=== PATIENT | male | born 1940 | race Caucasian/White ===

== ENCOUNTER 2016-10-22 16:21 | Inpatient (IN) | payer MEDICARE ==
[2016-10-22] MEDS ORDERED: LABETALOL 5 MG/ML VIAL MDV IVP STA (17:02)
[2016-10-22] MEDS ORDERED: SODIUM CHLORIDE 0.9% 1,000 ML IV ONE (17:02)
[2016-10-22] MEDS ORDERED: ASPIRIN 325 MG TAB PO STA (17:02)
[2016-10-22 17:25] LABS: Basophils # (A) 0.1 k/uL (0-0.2); Basophils % (A) 1 %; CH 30.9; CHCM 34.4; Eosinophils # (A) 0.1 k/uL (0-0.7); Eosinophils % (A) 0 %; HCT 47.7 % (39.0-53.0); HDW 2.49; HGB 15.9 gm/dL (13.0-17.5); Luc # (Auto) 0.15; Luc % (Auto) 1; Lymphocytes # (A) 1.3 k/uL (1.0-4.8); Lymphocytes % (A) 11 %; MCH 30.1 pg (25.0-35.0); MCHC 33.4 g/dL (31.0-37.0); MCV 90.2 fL (80.0-100.0); Mean Platelet Volume 8.4; Monocytes # (A) 0.4 k/uL (0-1.0); Monocytes % (A) 3 %; Neutrophils # (A) 9.9 k/uL (1.3-7.7); Neutrophils % (A) 84 %; RBC 5.29 m/uL (4.30-5.90); RDW 13.8 % (11.5-15.5); WBC 11.9 k/uL (3.8-10.6); WBC (Perox) 11.18
--- NOTE | 2016-10-22 17:33 | CT ---
EXAMINATION TYPE: CT brain wo con DATE OF EXAM: 10/22/2016 COMPARISON: NONE INDICATION: Patient complains of dizziness and high blood pressure. DLP: 882.3 mGycm, Automated exposure control for dose reduction was used. CONTRAST: None CT of the brain is performed utilizing 3 mm thick sections through the posterior fossa and 3 mm thick sections through the remaining calvarium. Study is performed within 24 hours of arrival to the hosp [facility]. No abnormal hyperdensity is present to suggest an acute intracranial hemorrhage. No mass lesion is evident. No acute infarcts are evident. Ventricles and sulci are appropriate for the patient age. Paranasal sinuses and mastoid air cells within the [id number] are clear. IMPRESSIONS: 1. Normal CT Brain
[2016-10-22 17:53] LABS: Anion Gap 10 mmol/L; Blood Urea Nitrogen 16 mg/dL (9-20); Calcium 9.5 mg/dL (8.4-10.2); Carbon Dioxide 27 mmol/L (22-30); Chloride 102 mmol/L (98-107); Glucose 104 mg/dL (74-99); Non-African American GFR(MDRD) >60 (>60 ml/min/1.73 sqM); Potassium 4.4 mmol/L (3.5-5.1); Sodium 139 mmol/L (137-145)
--- NOTE | 2016-10-22 18:32 | XR ---
EXAMINATION TYPE: XR chest 2V DATE OF EXAM: 10/22/2016 COMPARISON: NONE INDICATION: Dizziness TECHNIQUE: Frontal and lateral views of the chest are obtained. FINDINGS: The heart size is normal. The pulmonary vasculature is normal. The lungs are clear. IMPRESSION: 1. No acute pulmonary process.
[2016-10-22] MEDS ORDERED: NALOXONE 0.4 MG/ML 1 ML VIAL IV PRN (20:15)
[2016-10-22] MEDS ORDERED: ONDANSETRON 4 MG/2 ML VIAL IVP PRN (20:15)
--- NOTE | 2016-10-22 20:15 | ED ---
Dizziness HPI - General Chief Complaint: Dizziness Stated Complaint: HTN sent by [place] Time Seen by Provider: 10/22/16 16:43 Source: patient Mode of arrival: ambulatory Limitations: no limitations - History of Present Illness Initial Comments: 76-year-old male with past medical history of GERD presented for evaluation of sudden onset dizziness while driving his car. He states and his were on the road and she had just previously asked him to loin puller so she could do some driving. He states that he tilted his head upward and immediately felt a sudden onset dizziness as though his head was spinning. The patient had associated nausea and vomiting as well as right-sided neck pain. His symptoms improved mildly but his took him to an urgent care where he was found to be markedly hypertensive with a systolic greater than 220. He was then sent to this ED for further treatment and evaluation. He states no past medical history of hypertension although his says he can become anxious sometimes. No past medical history of vertigo. - Related Data Home Medications Medication Instructions Recorded Confirmed Arginine [l-Arginine] 500 mg PO DAILY 10/22/16 10/22/16 Ascorbic Acid [Vitamin C] 1,000 mg PO DAILY 10/22/16 10/22/16 Cholecalciferol [Vitamin D3] 1,000 unit PO DAILY 10/22/16 10/22/16 Glucosam/Raffi-Msm1/C/Liang/Bosw 1 tab PO DAILY 10/22/16 10/22/16 [Glucosamine-Chondroitin Tablet] Magnesium 200 mg PO DAILY 10/22/16 10/22/16 Omeprazole [PriLOSEC] 10 mg PO DAILY 10/22/16 10/22/16 Potassium 99 mg PO DAILY 10/22/16 10/22/16 Saw [place] 500 mg PO DAILY 10/22/16 10/22/16 Turmeric Root Extract [Turmeric] 500 mg PO DAILY 10/22/16 10/22/16 Allergies Allergy/AdvReac Type Severity Reaction Status Date / Time No Known Allergies Allergy Verified 10/22/16 18:34 Review of Systems ROS Statement: Those systems with pertinent positive or pertinent negative responses have been documented in the HPI. ROS Other: All systems not noted in ROS Statement are negative. Constitutional: Denies: fever, chills, weight change Eyes: Denies: eye pain, eye discharge, vision change ENT: Denies: ear pain, throat pain Respiratory: Denies: cough, dyspnea, wheezes Cardiovascular: Denies: chest pain, palpitations, dyspnea on exertion, orthopnea Endocrine: Denies: fatigue, polydipsia, polyuria Gastrointestinal: Reports: nausea, vomiting. Denies: abdominal pain, diarrhea, constipation Genitourinary: Denies: urgency, dysuria, frequency, hematuria Musculoskeletal: Denies: back pain, arthralgia, myalgia Skin: Denies: rash, lesions Neurological: Reports: other (Dizziness). Denies: headache, numbness, paresthesias, confusion Psychiatric: Reports: anxiety (Per the patient's ). Denies: depression Hematological/Lymphatic: Denies: easy bleeding, easy bruising Past Medical History Past Medical History: GERD/Reflux History of Any Multi-Drug Resistant Organisms: None Reported Past Surgical History: No Surgical Hx Reported Past Psychological History: No Psychological Hx Reported Smoking Status: Never smoker Past Alcohol Use History: None Reported Past Drug Use History: None Reported General Exam Limitations: no limitations General appearance: alert, in no apparent distress Head exam: Present: atraumatic, normocephalic, normal inspection Eye exam: Present: normal appearance, PERRL, EOMI. Absent: scleral icterus, conjunctival injection, periorbital swelling ENT exam: Present: normal exam, mucous membranes moist Neck exam: Present: normal inspection. Absent: tenderness, meningismus, lymphadenopathy Respiratory exam: Present: normal lung sounds bilaterally. Absent: respiratory distress, wheezes, rales, rhonchi, stridor Cardiovascular Exam: Present: regular rate, normal rhythm, normal heart sounds. Absent: systolic murmur, diastolic murmur, rubs, gallop, clicks GI/Abdominal exam: Present: soft, normal bowel sounds. Absent: distended, tenderness, guarding, rebound, rigid Rectal exam: Present: deferred Extremities exam: Present: normal inspection, full ROM, normal capillary refill. Absent: tenderness, pedal edema, joint swelling, calf tenderness Back exam: Present: normal inspection Neurological exam: Present: alert, oriented X3, CN II-XII intact, normal gait. Absent: altered Psychiatric exam: Present: normal affect, normal mood Skin exam: Present: warm, dry, intact, normal color. Absent: rash Course Vital Signs 10/22/16 10/22/16 10/22/16 16:27 18:20 18:49 Temperature 97.4 F L 97.9 F Pulse Rate 63 64 59 L Respiratory 16 18 20 Rate Blood Pressure 207/96 171/91 154/74 O2 Sat by Pulse 97 96 97 Oximetry 10/22/16 19:16 Temperature Pulse Rate 61 Respiratory 18 Rate Blood Pressure 194/86 O2 Sat by Pulse 96 Oximetry EKG Findings - EKG Comments: EKG Findings:: EKG shows normal sinus rhythm with left axis deviation and voltage criteria for LVH. Ventricular rate is 65, [place] interval 178, QRS 100, QT/ QTc 422/438. Medical Decision Making - Medical Decision Making 76-year-old male with past medical history of GERD presented for evaluation of dizziness with associated nausea and vomiting and neck pain. Onset was sudden and at rest. The patient has no past medical history of vertigo. On physical examination the patient is in no apparent distress. Cranial nerves II through XII are intact without focal neurologic deficit and he has normal gait and station. Currently states that he is asymptomatic. Given that the patient is markedly hypertensive, has new onset dizziness, and associated neck pain, concern for posterior cerebellar stroke is on the differential as well as BPPV and labyrinthitis. We'll obtain CT head, chest x- ray, EKG, labs and provide aspirin and IV fluids. Labs revealed no significant abnormalities. Chest x-ray showed no acute process and CT head showed no intracranial abnormalities. Patient's blood pressure improved markedly with IV labetalol. On reevaluation the patient continued to feel well although he states that he is still intermittently dizzy. He was informed of all results and through shared decision making it was determined that he would be admitted for further treatment and evaluation. The patient was discussed with Dr. VALIENTE who accepted the admission without further request. Admission order placed in bed request submitted. - Lab Data Result diagrams: 10/22/16 17:05 10/22/16 17:05 Lab Results 10/22/16 10/22/16 10/22/16 Range/Units 17:05 17:05 17:05 WBC 11.9 H (3.8-10.6) k/uL RBC 5.29 (4.30-5.90) m/uL Hgb 15.9 (13.0-17.5) gm/dL Hct 47.7 (39.0-53.0) % MCV 90.2 (80.0-100.0) fL MCH 30.1 (25.0-35.0) pg MCHC 33.4 (31.0-37.0) g/dL RDW 13.8 (11.5-15.5) % Plt Count 276 (150-450) k/uL Neutrophils % 84 % Lymphocytes % 11 % Monocytes % 3 % Eosinophils % 0 % Basophils % 1 % Neutrophils # 9.9 H (1.3-7.7) k/uL Lymphocytes # 1.3 (1.0-4.8) k/uL Monocytes # 0.4 (0-1.0) k/uL Eosinophils # 0.1 (0-0.7) k/uL Basophils # 0.1 (0-0.2) k/uL Sodium 139 (137-145) mmol/L Potassium 4.4 (3.5-5.1) mmol/L Chloride 102 (98-107) mmol/L Carbon Dioxide 27 (22-30) mmol/L Anion Gap 10 mmol/L BUN 16 (9-20) mg/dL Creatinine 0.70 (0.66-1.25) mg/dL Est GFR (MDRD) Af Amer >60 (>60 ml/min/1.73 sqM) Est GFR (MDRD) Non-Af >60 (>60 ml/min/1.73 sqM) Glucose 104 H (74-99) mg/dL Calcium 9.5 (8.4-10.2) mg/dL Troponin I (0.000-0.034) ng/mL NT-Pro-B Natriuret Pep 82 pg/mL 10/22/16 Range/Units 17:05 WBC (3.8-10.6) k/uL RBC (4.30-5.90) m/uL Hgb (13.0-17.5) gm/dL Hct (39.0-53.0) % MCV (80.0-100.0) fL MCH (25.0-35.0) pg MCHC (31.0-37.0) g/dL RDW (11.5-15.5) % Plt Count (150-450) k/uL Neutrophils % % Lymphocytes % % Monocytes % % Eosinophils % % Basophils % % Neutrophils # (1.3-7.7) k/uL Lymphocytes # (1.0-4.8) k/uL Monocytes # (0-1.0) k/uL Eosinophils # (0-0.7) k/uL Basophils # (0-0.2) k/uL Sodium (137-145) mmol/L Potassium (3.5-5.1) mmol/L Chloride (98-107) mmol/L Carbon Dioxide (22-30) mmol/L Anion Gap mmol/L BUN (9-20) mg/dL Creatinine (0.66-1.25) mg/dL Est GFR (MDRD) Af Amer (>60 ml/min/1.73 sqM) Est GFR (MDRD) Non-Af (>60 ml/min/1.73 sqM) Glucose (74-99) mg/dL Calcium (8.4-10.2) mg/dL Troponin I <0.012 (0.000-0.034) ng/mL NT-Pro-B Natriuret Pep pg/mL Disposition Clinical Impression: Dizziness, Hypertensive urgency Disposition: ADMITTED IP TO THIS [facility] Referrals: None,Stated [Primary Care Provider] - 1-2 days Decision to Admit Reason: Admit from EC Decision Date: 10/22/16 Decision Time: 20:13
[2016-10-22] MEDS: SODIUM CHLORIDE 0.9% 1,000 ML IV SCH (20:21)
[2016-10-23] MEDS: SODIUM CHLORIDE 0.9% 1,000 ML IV SCH (05:24)
[2016-10-23 07:47] VITALS: RESP 14; TEMP 97.8
[2016-10-23 08:11] LABS: Basophils % (A) 0 %; CH 30.7; CHCM 33.8; Eosinophils # (A) 0.1 k/uL (0-0.7); Eosinophils % (A) 1 %; HDW 2.48; HGB 14.8 gm/dL (13.0-17.5); Luc # (Auto) 0.16; Luc % (Auto) 2; Lymphocytes # (A) 1.8 k/uL (1.0-4.8); Lymphocytes % (A) 21 %; MCHC 32.9 g/dL (31.0-37.0); Mean Platelet Volume 8.4; Monocytes # (A) 0.4 k/uL (0-1.0); Monocytes % (A) 5 %; Neutrophils # (A) 6.3 k/uL (1.3-7.7); Neutrophils % (A) 71 %; RBC 4.95 m/uL (4.30-5.90); RDW 13.8 % (11.5-15.5); WBC 8.8 k/uL (3.8-10.6); WBC (Perox) 8.34
[2016-10-23 08:34] LABS: Anion Gap 10 mmol/L; Blood Urea Nitrogen 12 mg/dL (9-20); Calcium 8.8 mg/dL (8.4-10.2); Carbon Dioxide 26 mmol/L (22-30); Chloride 107 mmol/L (98-107); Cholesterol 243 mg/dL (<200); Glucose 91 mg/dL (74-99); HDL Cholesterol 49 mg/dL (40-60); Non-African American GFR(MDRD) >60 (>60 ml/min/1.73 sqM); Potassium 4.3 mmol/L (3.5-5.1); Sodium 143 mmol/L (137-145)
[2016-10-23 08:58] LABS: Appearance,Urine Clear (Clear); Bilirubin,Urine Negative (Negative); Glucose,Urine (UA) Negative (Negative); Ketones,Urine Negative (Negative); Leukocyte Esterase,Urine Negative (Negative); Nitrite,Urine Negative (Negative); Protein,Urine Negative (Negative); Specific Gravity,Urine 1.013 (1.001-1.035); UA Billing (MACRO vs. MICRO) CHEM; Urobilinogen,Urine <2.0 mg/dL (<2.0)
[2016-10-23] MEDS ORDERED: NON-FORMULARY DRUG (Saw Palmetto [Saw Palmetto] 500 MG) PO SCH (09:00)
[2016-10-23] MEDS ORDERED: MAGNESIUM OXIDE 400 MG TAB PO SCH (09:00)
[2016-10-23] MEDS ORDERED: ASCORBIC ACID 500 MG TAB PO SCH (09:00)
[2016-10-23] MEDS ORDERED: PANTOPRAZOLE 40 MG TABLET PO SCH (09:00)
[2016-10-23] MEDS ORDERED: ARGININE 500 MG PO SCH (09:00)
[2016-10-23] MEDS ORDERED: NON-FORMULARY DRUG (Turmeric Root Extract [Turmeric] 500 MG) PO SCH (09:00)
[2016-10-23] MEDS ORDERED: CHOLECALCIFEROL 1,000 UNIT TAB PO SCH (09:00)
[2016-10-23] MEDS ORDERED: POTASSIUM CHLORIDE ER 20 MEQ TAB.ER PO SCH (09:00)
[2016-10-23] MEDS ORDERED: NON-FORMULARY DRUG (Glucosam/Chon-Msm1/C/Mang/Bosw [Glucosamine-Chondroitin Tablet] 1 TAB) PO SCH (09:00)
[2016-10-23 12:50] VITALS: BP 184/98; PULSE 69
--- NOTE | 2016-10-23 14:22 | HP ---
HISTORY AND PHYSICAL CHIEF COMPLAINT: Dizziness and vomiting. HISTORY OF PRESENT ILLNESS: This is a 76-year-old gentleman who lives in the [place] area, was driving from [place]. Patient has a past history of GERD. The patient does not have a family doctor. While the patient was driving the patient had an episode of dizziness and vomiting and patient felt that everything around him was spinning and patient was taken to [facility] and admitted for further evaluation and treatment. The patent also had complaining of right-sided neck pain. In the emergency room the patient's blood pressure was more than 220 systolic and patient admitted for further evaluation and treatment. There is no history of any fevers, rigors, chills. No history of headache, any loss of consciousness or seizure. No history of any chest pain, palpitations, hematochezia or melena at this time. PAST MEDICAL HISTORY: GERD. HOME MEDICATIONS: 1. Turmeric 500 mg daily. 2. Saw [place] 500 mg daily. 3. Potassium 90 mg a day. 4. Magnesium 200 mg a day. 5. Glucosamine 1 tab daily. 6. Vitamin D 3000 daily. 7. Vitamin C 1000 mg daily. 9. Prilosec 10 mg p.o. daily. ALLERGIES: None. FAMILY HISTORY: History of stroke in father at age of 80. SOCIAL HISTORY: No history of smoking. No history of alcohol intake. REVIEW OF SYSTEMS: ENT: As mentioned earlier. CARDIOVASCULAR: No angina, no palpitations. RESPIRATORY: No cough or hemoptysis. GI: No nausea or vomiting. : No dysuria. NERVOUS SYSTEM: No numbness or weakness. ALLERGY/IMMUNOLOGY: No asthma, no hayfever. MUSCULOSKELETAL: As mentioned earlier. HEMATOLOGY/ONCOLOGY: No anemia. ENDOCRINE: No history of diabetes. CONSTITUTIONAL: As mentioned earlier. PSYCHIATRIC: As mentioned earlier. PHYSICAL EXAMINATION: The patient is alert, oriented x3. The pulse is 62, blood pressure 144/77, respirations 16, temperature 97.4, pulse ox 94% on room air. HEENT: Conjunctivae normal. Oral mucosa is moist. NECK: No JVD, no carotid bruit, no lymph node enlargement. CARDIOVASCULAR: S1/S2 normal. No S3 or S4. RESPIRATORY: Diminished breath sounds at the bases. No rhonchi, no crackles. ABDOMEN: Soft, nontender. No mass palpable. NERVOUS SYSTEM: Higher functions mentioned. Cranial nerves 2-12 grossly intact. No nystagmus, no diplopia. Moves all four limbs. No dysfunction. LYMPHATICS: No lymph node palpable in the neck or axilla. SKIN: No rashes. LABS: WBC 7.9. ASSESSMENT: 1. Acute dizziness and vomiting, possible benign positional vertigo, rule out vertebrobasilar transient ischemic attack. 2. Increased WBC. 3. Gastroesophageal reflux disease. 4. Hypertension. RECOMMENDATIONS AND DISCUSSION: In this 76-year-old gentleman who presented with multiple complex medical issues , will monitor patient closely, continue the current medication, continue symptomatic treatment. Antiplatelet agents have been initiated. Otherwise I would monitor the patient closely. I would order an MRI. A CAT scan of the brain and chest x- ray and other evaluations done showed no abnormality. The EKG was also done which showed LVH. The blood pressure is normalized at this time. I recommend the patient follow up with the primary physician closely and monitor for hypertension as well as other physical medical issues. We will also check for a lipid panel in the morning. Otherwise , the prognosis is guarded because of the multiple medical issues. We will repeat the labs in the morning and further recommendations to follow. I discussed with the patient and family who understand and agree. Neurology has been consulted. Neuro checks. MMODL / IJN: [id number] / DEBBIE
--- NOTE | 2016-10-24 00:55 | P.DS ---
Providers Date of admission: 10/22/16 20:18 Attending physician: Esequiel Rodrigez MD Consults: 10/23/16 13:20 Consult Physician Urgent Consulting Provider: Balbir Ferrera Consult Reason/Comments: tia, can he be seen today? Do you want consulting provider notified?: Yes Primary care physician: Stated None Hospital Course: This 76-year-old gentleman not being followed by any primary physician about preceding was admitted with acute dizziness and vomiting. Treated symptomatically. The CAT scan of the chest brain was normal. The possibility of benign positional vertigo or vertebrobasilar TIA has been consulted. The patient is keen on going home. His and is currently asymptomatic. With the no neurology deficit. Outpatient MRI is suggested and neurology evaluation. MRI results to be followed up with the primary physician and neurologist at his local area. On exam vitals stable. S1 and S2 normal. Respiratory system clear to auscultation. Abdomen soft nontender. Nervous system no focal motor neurologic deficit. No nystagmus no diplopia. This patient be discharged in a stable condition with guarded prognosis. I Have recommended the patient to follow-up with the primary physician and neurologist closely in the local area. The patient understands and agrees. The patient would like to try diet before starting on any antihyperlipidemic agent at this time. Final diagnosis 1. Acute dizziness and vomiting possible benign positional vertigo, possibly vertebrobasilar TIA. 2. Hypertension 3. Hyperlipidemia 4. Increased WBC 5.GERD Plan - Discharge Summary New Discharge Prescriptions: New Aspirin 81 mg PO DAILY #30 chewable Lisinopril [Prinivil] 5 mg PO BID #60 tablet Meclizine [Antivert] 12.5 mg PO Q6H PRN #20 tablet PRN Reason: Vertigo Continue Cholecalciferol [Vitamin D3] 1,000 unit PO DAILY Omeprazole [PriLOSEC] 10 mg PO DAILY Turmeric Root Extract [Turmeric] 500 mg PO DAILY [place] 500 mg PO DAILY Potassium 99 mg PO DAILY Magnesium 200 mg PO DAILY Glucosam/Raffi-Msm1/C/Liang/Bosw [Glucosamine-Chondroitin Tablet] 1 tab PO DAILY Ascorbic Acid [Vitamin C] 1,000 mg PO DAILY Arginine [l-Arginine] 500 mg PO DAILY Discharge Medication List Arginine [l-Arginine] 500 mg PO DAILY 10/22/16 [History] Ascorbic Acid [Vitamin C] 1,000 mg PO DAILY 10/22/16 [History] Cholecalciferol [Vitamin D3] 1,000 unit PO DAILY 10/22/16 [History] Glucosam/Raffi-Msm1/C/Liang/Bosw [Glucosamine-Chondroitin Tablet] 1 tab PO DAILY 10/22/16 [History] Magnesium 200 mg PO DAILY 10/22/16 [History] Omeprazole [PriLOSEC] 10 mg PO DAILY 10/22/16 [History] Potassium 99 mg PO DAILY 10/22/16 [History] Saw [place] 500 mg PO DAILY 10/22/16 [History] Turmeric Root Extract [Turmeric] 500 mg PO DAILY 10/22/16 [History] Aspirin 81 mg PO DAILY #30 chewable 10/23/16 [Rx] Lisinopril [Prinivil] 5 mg PO BID #60 tablet 10/23/16 [Rx] Meclizine [Antivert] 12.5 mg PO Q6H PRN #20 tablet 10/23/16 [Rx] Follow up Appointment(s)/Referral(s): pcp, [Other] - 3 Days (please call 10/24/16 to make appointment) Ambulatory/Diagnostic Orders: Complete Blood Count w/diff [LAB.AMB] Location: Determined By Patient Miscellaneous Radiology Order [RAD.AMB] Location: Determined By Patient Activity/Diet/Wound Care/Special Instructions: diet cardiac low fat low cholesterol act limited till f/u Discharge Disposition: HOME SELF-CARE
== END 2016-10-23 14:37 | disposition home or self-care (01) | DRG 69 ==
LOC: EC 16:21 → 4MS4W 20:18
PROVIDERS: ADMIT Internal Medicine; ATTEND Internal Medicine
DX: G45.0 Vertebro-basilar artery syndrome (principal); I10 Essential (primary) hypertension; E78.5 Hyperlipidemia, unspecified; K21.9 Gastro-esophageal reflux disease without esophagitis; I16.0 Hypertensive urgency; Z79.899 Other long term (current) drug therapy; Z82.3 Family history of stroke
CPT/HCPCS: 36415; 70450; 71020; 80048; 80061; 81003; 83880; 84484; 85025; 87086; 93005; 96361; 96374; 99285